=== PATIENT | female | born 1990 | race Caucasian/White ===

== ENCOUNTER 2019-03-22 17:13 | Emergency (ER) | payer OTHER ==
[~2019-03-22] VITALS: Ht 180.3 cm; Wt 72.6 kg
[2019-03-22] MEDS ORDERED: BUPRENORPHINE HC2 MG SL (17:34)
[2019-03-22] MEDS ORDERED: Constulose10 GM/15 M PO (19:18)
[2019-03-22] MEDS ORDERED: Suppository1 EACH PR (19:18)
== END 2019-03-22 19:27 | disposition home or self-care (01) ==
LOC: ER 17:13
DX: K59.00 Constipation, unspecified (principal); Z79.899 Other long term (current) drug therapy; F17.200 Nicotine dependence, unspecified, uncomplicated
CPT/HCPCS: 74018; 74176; 81025; 99284-25